=== PATIENT | female | born 1935 | race Caucasian/White ===

== ENCOUNTER 2017-08-03 19:11 | Emergency (ER) | payer MEDICAID ==
[~2017-08-03 19:11] MED LIST: AMLODIPINE BES2.5 M1; CLINDAMYCIN HC300 MG PO; DIT5 PO; LAC PO; LEVAQUIN750 MG PO; LISINOPRIL2.5 MG; NOR5 PO; PRA40; ZES10 PO; ZORVOLEX18 MG
[2017-08-03 22:40] VITALS: BP 183/90
== END 2017-08-03 22:40 | disposition home or self-care (01) ==
LOC: ED 19:11
DX: S51.011A Laceration without foreign body of right elbow, initial encounter (principal); S40.021A Contusion of right upper arm, initial encounter; E78.00 Pure hypercholesterolemia, unspecified; I10 Essential (primary) hypertension; R51 Headache; W01.0XXA Fall on same level from slipping, tripping and stumbling without subsequent striking against object, initial encounter; Y93.89 Activity, other specified; Y92.89 Other specified places as the place of occurrence of the external cause; Y99.8 Other external cause status
CPT/HCPCS: 90715; J1885; Q0092

== ENCOUNTER 2017-09-18 20:30 | Emergency (ER) | payer MEDICAID ==
[~2017-09-18] VITALS: Ht 154.9 cm; Wt 104.3 kg
[2017-09-18 20:54] VITALS: Ht 154.9 cm; Wt 104.3 kg
[2017-09-18 22:02] LABS: BASOPHIL % 0.1 % (0-2); PLATELET COUNT 263 x10^3mcL (130-400); RED CELL DISTRIBUTION WIDTH 14.3 % (11.5-14.5)
[2017-09-18 22:12] LABS: CALCIUM 8.8 mg/dL (8.5-10.1); CARBON DIOXIDE 25.4 mmol/L (21-32); CHLORIDE SERUM 103 mmol/L (98-107); CREATININE SERUM 1.2 mg/dL (0.6-1.0); GLUCOSE SERUM 145 mg/dL (74-106); SODIUM SERUM 139 mmol/L (136-145)
[2017-09-18 22:16] LABS: ALKALINE PHOSPHATASE 98 U/L (46-116); ALT/SGPT 20 U/L (14-59); AMYLASE 60 U/L (25-115); AST/SGOT 18 U/L (15-37); BILIRUBIN TOTAL 0.1 mg/dL (0.20-1.00); LIPASE 155 IU/L (73-393)
[2017-09-18 22:17] LABS: ALBUMIN 3.2 g/dL (3.4-5.0); TOTAL PROTEIN, SERUM 8.4 g/dL (6.4-8.2)
[2017-09-18 23:03] LABS: microscopic required? NO
[2017-09-18 23:23] LABS: UA SPECIFIC GRAVITY 1.015 (1.005-1.035); urine erythrocyte NEGATIVE (NEGATIVE)
[2017-09-19 02:47] VITALS: BP 170/111
== END 2017-09-19 02:30 | disposition home or self-care (01) ==
LOC: ED 20:30
PROVIDERS: Emergency Medicine
DX: S76.011A Strain of muscle, fascia and tendon of right hip, initial encounter (principal); K59.00 Constipation, unspecified; I10 Essential (primary) hypertension; E78.00 Pure hypercholesterolemia, unspecified; W18.39XA Other fall on same level, initial encounter; Y93.89 Activity, other specified; Y92.89 Other specified places as the place of occurrence of the external cause; Y99.8 Other external cause status
CPT/HCPCS: 83880; J1885; J2270; J2765; Q0092

== ENCOUNTER 2017-09-27 09:07 | Inpatient (IN) | payer MEDICAID ==
[~2017-09-27] VITALS: Ht 157.5 cm; Wt 86.3 kg
[2017-09-27 10:09] LABS: BASOPHIL % 0.1 % (0-2); PLATELET COUNT 232 x10^3mcL (130-400)
[2017-09-27 10:13] LABS: RED CELL DISTRIBUTION WIDTH 14.8 % (11.5-14.5)
[2017-09-27 10:19] LABS: CALCIUM 9.2 mg/dL (8.5-10.1); CARBON DIOXIDE 26.1 mmol/L (21-32); CHLORIDE SERUM 103 mmol/L (98-107); CREATININE SERUM 1.1 mg/dL (0.6-1.0); GLUCOSE SERUM 117 mg/dL (74-106); POTASSIUM SERUM 3.6 mmol/L (3.5-5.1); SODIUM SERUM 135 mmol/L (136-145)
[2017-09-27 10:23] LABS: ALKALINE PHOSPHATASE 89 U/L (46-116); ALT/SGPT 19 U/L (14-59); AST/SGOT 19 U/L (15-37); BILIRUBIN TOTAL 0.3 mg/dL (0.20-1.00); CHOLESTEROL 159 mg/dL (<200); HDL CHOLESTEROL 51 mg/dL (40-60); MAGNESIUM 1.9 mg/dL (1.8-2.4); PHOSPHOROUS 2.9 mg/dL (2.5-4.9)
[2017-09-27 10:24] LABS: ALBUMIN 3.2 g/dL (3.4-5.0)
[2017-09-27 11:00] LABS: FREE T4 1.28 ng/dL (0.76-1.46); FREE THYROXINE INDEX 2.5 ug/dL (1.4-4.5); T4(THYROXINE) 7.2 ug/dL (4.7-13.3)
[2017-09-27 11:06] LABS: T3 TOTAL 0.75 ng/mL
[2017-09-27 11:15] LABS: microscopic required? YES; urine erythrocyte NEGATIVE (NEGATIVE)
[2017-09-27] MEDS ORDERED: LISINOPRIL20 MG PO (13:45)
[2017-09-27] MEDS ORDERED: HYDROCHLOROTHIA25 MG PO (13:45)
[2017-09-27] MEDS ORDERED: LEXAPRO10 MG PO (13:46)
[2017-09-27 13:52] VITALS: BP 177/107
[2017-09-27 14:38] LABS: CHOLESTEROL/HDL RATIO 3.1
[2017-09-27 15:08] VITALS: BP 148/58
[2017-09-27 17:58] VITALS: BP 162/66
[2017-09-27 21:46] VITALS: BP 159/62
[2017-09-28] VITALS (7 sets, daily range): BP systolic 110–174; BP diastolic 47–75
[2017-09-28 07:00] LABS: CALCIUM 8.8 mg/dL (8.5-10.1); CARBON DIOXIDE 25.6 mmol/L (21-32); CHLORIDE SERUM 105 mmol/L (98-107); CREATININE SERUM 0.9 mg/dL (0.6-1.0); GLUCOSE SERUM 87 mg/dL (74-106); POTASSIUM SERUM 4.1 mmol/L (3.5-5.1); SODIUM SERUM 138 mmol/L (136-145)
[2017-09-28 07:15] LABS: BASOPHIL % 0.3 % (0-2); PLATELET COUNT 248 x10^3mcL (130-400); RED CELL DISTRIBUTION WIDTH 14.4 % (11.5-14.5)
[2017-09-28] MEDS ORDERED: BACLOFEN10 MG PO (10:47)
[2017-09-28] MEDS ORDERED: DICLOFENAC SODI75 M1 PO (10:48)
[2017-09-28] MEDS ORDERED: SEROQUEL25 MG PR (16:20)
[2017-09-29 05:57] VITALS: BP 164/76
[2017-09-29 07:42] LABS: BASOPHIL % 0.3 % (0-2); PLATELET COUNT 245 x10^3mcL (130-400); RED CELL DISTRIBUTION WIDTH 14.4 % (11.5-14.5)
[2017-09-29] MEDS ORDERED: SEROQUEL25 MG PR (08:20)
[2017-09-29] MEDS ORDERED: LEVAQUIN750 MG PO (08:21)
[2017-09-29] MEDS ORDERED: LAC PO (08:22)
[2017-09-29] MEDS ORDERED: APAP/HYDROCODON1 T13 PO (08:24)
[2017-09-29 08:25] LABS: CALCIUM 9.1 mg/dL (8.5-10.1); CARBON DIOXIDE 26.4 mmol/L (21-32); CHLORIDE SERUM 105 mmol/L (98-107); CREATININE SERUM 0.9 mg/dL (0.6-1.0); GLUCOSE SERUM 87 mg/dL (74-106); POTASSIUM SERUM 3.8 mmol/L (3.5-5.1); SODIUM SERUM 139 mmol/L (136-145)
[2017-09-29] MEDS ORDERED: TYL325 PO (08:25)
[2017-09-29 08:27] VITALS: BP 164/76
[2017-09-29 09:33] VITALS: BP 162/67
== END 2017-09-29 11:10 | disposition home or self-care (01) | DRG 463 ==
LOC: ED 09:07 → DU 12:10
PROVIDERS: Emergency Medicine; Family Medicine
DX: N39.0 Urinary tract infection, site not specified (principal); N17.0 Acute kidney failure with tubular necrosis; G93.41 Metabolic encephalopathy; I67.4 Hypertensive encephalopathy; E44.0 Moderate protein-calorie malnutrition; E87.1 Hypo-osmolality and hyponatremia; F05 Delirium due to known physiological condition; F03.90 Unspecified dementia, unspecified severity, without behavioral disturbance, psychotic disturbance, mood disturbance, and anxiety; D64.9 Anemia, unspecified; I16.1 Hypertensive emergency; I10 Essential (primary) hypertension; E78.00 Pure hypercholesterolemia, unspecified; H91.91 Unspecified hearing loss, right ear; F32.9 Major depressive disorder, single episode, unspecified; F41.9 Anxiety disorder, unspecified; M19.90 Unspecified osteoarthritis, unspecified site; Z90.49 Acquired absence of other specified parts of digestive tract; Z68.31 Body mass index [BMI] 31.0-31.9, adult
CPT/HCPCS: 83880; 84439; 90658; 90732; 97110-GP; 97530-GP; J0360; J0696; J3490; J7030; Q0092

== ENCOUNTER 2019-05-26 11:12 | Inpatient (IN) | payer MEDICAID ==
[~2019-05-26] VITALS: Ht 149.9 cm; Wt 90.7 kg
[~2019-05-26 11:12] MED LIST changes: +APAP/HYDROCODON1 T13 PO; +BACLOFEN10 MG PO; +DICLOFENAC SODI75 M1 PO; +HYDROCHLOROTHIA25 MG PO; +LEXAPRO10 MG PO; +LISINOPRIL20 MG PO; +SEROQUEL25 MG PR; +TYL325 PO
[2019-05-26 11:20] VITALS: Ht 149.9 cm; Wt 90.7 kg
[2019-05-26 11:58] LABS: BASOPHIL % 0.1 % (0-2); PLATELET COUNT 336 x10^3mcL (130-400); RED CELL DISTRIBUTION WIDTH 14.2 % (11.5-14.5)
[2019-05-26 12:08] LABS: CALCIUM 8.7 mg/dL (8.5-10.1); CHLORIDE SERUM 105 mmol/L (98-107); CREATININE SERUM 1.7 mg/dL (0.6-1.0); GLUCOSE SERUM 114 mg/dL (74-106); POTASSIUM SERUM 4.7 mmol/L (3.5-5.1); SODIUM SERUM 137 mmol/L (136-145)
[2019-05-26 12:21] LABS: ALBUMIN 3.1 g/dL (3.4-5.0); ALKALINE PHOSPHATASE 86 U/L (46-116); ALT/SGPT 10 U/L (14-59); AST/SGOT 12 U/L (15-37); BILIRUBIN TOTAL 0.2 mg/dL (0.20-1.00); T4(THYROXINE) 5.8 ug/dL (4.7-13.3); TOTAL PROTEIN, SERUM 8.8 g/dL (6.4-8.2)
[2019-05-26] MEDS ORDERED: NEU300 PO (14:27)
[2019-05-26] MEDS ORDERED: FLUOXETINE HYDR10 M1 PO (14:28)
[2019-05-26 14:48] LABS: microscopic required? YES; urine erythrocyte TRACE (NEGATIVE)
[2019-05-26 16:55] LABS: CHOLESTEROL/HDL RATIO 5.3; MAGNESIUM 1.7 mg/dL (1.8-2.4); PHOSPHOROUS 3.6 mg/dL (2.5-4.9)
[2019-05-26 17:32] VITALS: BP 147/67
[2019-05-26 22:03] VITALS: BP 151/75
[2019-05-27 05:52] VITALS: BP 142/74
[2019-05-27 06:33] LABS: BASOPHIL % 0.2 % (0-2); PLATELET COUNT 309 x10^3mcL (130-400); RED CELL DISTRIBUTION WIDTH 13.8 % (11.5-14.5)
[2019-05-27 06:41] LABS: CALCIUM 8.8 mg/dL (8.5-10.1); CARBON DIOXIDE 25.8 mmol/L (21-32); CHLORIDE SERUM 107 mmol/L (98-107); CREATININE SERUM 1.4 mg/dL (0.6-1.0); GLUCOSE SERUM 80 mg/dL (74-106); MAGNESIUM 1.8 mg/dL (1.8-2.4); PHOSPHOROUS 4.3 mg/dL (2.5-4.9); POTASSIUM SERUM 5.1 mmol/L (3.5-5.1); SODIUM SERUM 141 mmol/L (136-145)
[2019-05-27 09:59] VITALS: BP 142/61
[2019-05-27 17:02] VITALS: BP 148/89
[2019-05-27 20:27] VITALS: BP 142/78
[2019-05-28 05:16] VITALS: BP 156/81
[2019-05-28 06:45] LABS: BASOPHIL % 0.1 % (0-2); PLATELET COUNT 326 x10^3mcL (130-400); RED CELL DISTRIBUTION WIDTH 13.6 % (11.5-14.5)
[2019-05-28 06:49] LABS: CARBON DIOXIDE 25.5 mmol/L (21-32); CHLORIDE SERUM 106 mmol/L (98-107); CREATININE SERUM 1.2 mg/dL (0.6-1.0); GLUCOSE SERUM 89 mg/dL (74-106); MAGNESIUM 1.5 mg/dL (1.8-2.4); PHOSPHOROUS 3.6 mg/dL (2.5-4.9); POTASSIUM SERUM 4.6 mmol/L (3.5-5.1); SODIUM SERUM 140 mmol/L (136-145)
[2019-05-28 09:25] VITALS: BP 145/82
[2019-05-28 10:59] VITALS: BP 145/82
[2019-05-28] MEDS ORDERED: LEV500 PO (11:50)
[2019-05-28 12:56] VITALS: BP 109/70
== END 2019-05-28 14:33 | disposition home or self-care (01) | DRG 194 ==
LOC: ED 11:12 → DU 15:12
PROVIDERS: Emergency Medicine; ADMIT Internal Medicine
DX: I13.0 Hypertensive heart and chronic kidney disease with heart failure and stage 1 through stage 4 chronic kidney disease, or unspecified chronic kidney disease (principal); N17.0 Acute kidney failure with tubular necrosis; E83.42 Hypomagnesemia; J20.9 Acute bronchitis, unspecified; D64.9 Anemia, unspecified; F03.90 Unspecified dementia, unspecified severity, without behavioral disturbance, psychotic disturbance, mood disturbance, and anxiety; I50.9 Heart failure, unspecified; N18.9 Chronic kidney disease, unspecified; R09.02 Hypoxemia; M19.90 Unspecified osteoarthritis, unspecified site; E78.5 Hyperlipidemia, unspecified; Z99.3 Dependence on wheelchair
CPT/HCPCS: 36600; 83880; 85378; 87804; 90658; 90732; 97116-GP; 97530-GP; A9540; G0378; J0360; J1940; J7030; J7070

== ENCOUNTER 2019-08-05 10:01 | Emergency (ER) | payer MEDICAID ==
[~2019-08-05] VITALS: Ht 149.9 cm; Wt 81.6 kg
[~2019-08-05 10:01] MED LIST changes: +FLUOXETINE HYDR10 M1 PO; +LEV500 PO; +NEU300 PO
[2019-08-05 10:14] VITALS: Ht 149.9 cm; Wt 81.6 kg
[2019-08-05 12:34] VITALS: BP 164/63
== END 2019-08-05 12:34 | disposition home or self-care (01) ==
LOC: ED 10:01
DX: G44.209 Tension-type headache, unspecified, not intractable (principal); I10 Essential (primary) hypertension; E78.00 Pure hypercholesterolemia, unspecified; Z90.89 Acquired absence of other organs

== ENCOUNTER 2019-08-14 09:13 | Emergency (ER) | payer MEDICAID ==
[~2019-08-14] VITALS: Ht 157.5 cm; Wt 86.2 kg
[2019-08-14 09:17] VITALS: Ht 157.5 cm; Wt 86.2 kg
[2019-08-14 10:09] LABS: BASOPHIL % 0.2 % (0-2); PLATELET COUNT 331 x10^3mcL (130-400); RED CELL DISTRIBUTION WIDTH 14.7 % (11.5-14.5)
[2019-08-14 10:12] VITALS: BP 111/97
[2019-08-14 10:12] LABS: CARBON DIOXIDE 19.8 mmol/L (21-32); CHLORIDE SERUM 105 mmol/L (98-107); CREATININE SERUM 1.4 mg/dL (0.6-1.0); GLUCOSE SERUM 216 mg/dL (74-106); POTASSIUM SERUM 3.5 mmol/L (3.5-5.1); SODIUM SERUM 138 mmol/L (136-145)
[2019-08-14 10:13] LABS: CALCIUM 8.6 mg/dL (8.5-10.1)
[2019-08-14 10:20] LABS: ALBUMIN 2.8 g/dL (3.4-5.0); TOTAL PROTEIN, SERUM 7.9 g/dL (6.4-8.2)
[2019-08-14 10:21] LABS: ALKALINE PHOSPHATASE 69 U/L (46-116); ALT/SGPT 17 U/L (14-59); AST/SGOT 18 U/L (15-37); BILIRUBIN TOTAL 0.4 mg/dL (0.20-1.00); T4(THYROXINE) 7.4 ug/dL (4.7-13.3)
[2019-08-14 11:47] LABS: CK-MB 6.3 ng/mL (0-3.6)
== END 2019-08-14 10:12 | disposition short-term general hospital (02) ==
LOC: ED 09:13
PROVIDERS: Emergency Medicine
DX: I21.3 ST elevation (STEMI) myocardial infarction of unspecified site (principal); I10 Essential (primary) hypertension; E78.00 Pure hypercholesterolemia, unspecified; Z90.89 Acquired absence of other organs
CPT/HCPCS: 82962; 83880; Q0092